=== PATIENT | male | born 1985 | race African-American/Black ===

== ENCOUNTER 2021-05-27 19:04 | Emergency (ER) | payer MEDICAID ==
[~2021-05-27] VITALS: Ht 190.5 cm; Wt 75.0 kg
[2021-05-27] MEDS ORDERED: KETOROLAC 60MG/2ML VIAL IM ONE (20:00)
[2021-05-27] MEDS ORDERED: IBUPROFEN 600MG TABLET PO ONE (20:15)
[2021-05-27] MEDS ORDERED: IBUP-1523 MT (21:02)
[2021-05-27] MEDS ORDERED: CYCL5TAB PO (21:03)
[2021-05-27 21:10] VITALS: BP 108/61
== END 2021-05-27 21:11 | disposition home or self-care (01) ==
LOC: ER 19:04
DX: S39.012A Strain of muscle, fascia and tendon of lower back, initial encounter (principal); Z98.890 Other specified postprocedural states; X58.XXXA Exposure to other specified factors, initial encounter; Y93.89 Activity, other specified; Y92.89 Other specified places as the place of occurrence of the external cause; Y99.8 Other external cause status
CPT/HCPCS: 72100; 99283

== ENCOUNTER 2025-01-17 12:35 | Emergency (ER) | payer MEDICAID ==
[~2025-01-17] VITALS: Ht 188 cm; Wt 80.0 kg
[~2025-01-17 12:35] MED LIST: CYCL5TAB3 PO; IBUP-1523 MT
[2025-01-17 12:47] VITALS: O2SAT 99
[2025-01-17 14:51] VITALS: BP 125/86; PULSE 80; RESP 18; TEMP 36.9; O2SAT 98
== END 2025-01-17 14:53 | disposition home or self-care (01) ==
LOC: ER 12:35
DX: M54.50 Low back pain, unspecified (principal); Z98.890 Other specified postprocedural states
CPT/HCPCS: 99281